=== PATIENT | male | born 1960 | race Caucasian/White ===

== ENCOUNTER → 2016-08-10 | Outpatient (CLI) | payer OTHER ==
[~2016-08-10] MED LIST: BREO ELLIPTA 11 EACH INH; FLONASE16 GM NASBOTH; SINGULAIR10 MG PO; VITAMIN D31000 UNIT PO; ZANTAC300 MG PO
== END | disposition short-term general hospital (02) ==
LOC: CLCARD 09:04
DX: I25.10 Atherosclerotic heart disease of native coronary artery without angina pectoris (principal); I25.5 Ischemic cardiomyopathy; E78.5 Hyperlipidemia, unspecified; I25.2 Old myocardial infarction; F17.201 Nicotine dependence, unspecified, in remission; N18.3 Chronic kidney disease, stage 3 (moderate); G47.33 Obstructive sleep apnea (adult) (pediatric)